=== PATIENT | female | born 1945 | race Caucasian/White ===

== ENCOUNTER 2016-06-28 18:44 | Emergency (ER) | payer MEDICARE ==
[~2016-06-28 18:44] MED LIST: ADVIL200 M3 PO; ALEVE220 M4 PO; B122500 MCG; CARDIZEM CD120 MG PO; CELEBREX200 M1 PO; CHOLESTYRAMIN4 G/PKT PO; CIPROFLOXACIN250 MG PO; DEPAKOTE D500 MG/TA1 PO; DEPAKOTE ER500 MG; DEPAKOTE500 M1 PO; DEPAKOTE500 MG PO; DULCOLAX10 MG RC; GABAPENTIN300 M1 PO; IRON PO; KRILL OIL PO; LORCET HD CAPSU1 CAP PO; MELATONIN 3 MG1 EAC1 PO; MELATONIN PO; MELATONIN3 M4 PO; MULTIVITAMIN W/1 TA; NITROFURANTOIN100 MG PO; NORCO 5-325 TA1 EACH PO; OMEPRAZOLE20 M3 PO; PRADAXA150 M1 PO; PRADAXA150 MG PO; PROBIOTIC1 EA10 PO; PROBIOTIC1 EACH PO; SORINE80 MG PO; SOTALOL80 M1 PO; TOVIAZ4 MG PO; TYLENOL; TYLENOL EXTRA500 M1 PO; ULTRAM50 M1 PO; VASOTEC PO; VESICARE10 M1 PO; VITAMIN B12-FO1 EAC1 PO; VITAMIN B12500 MCG PO; VITAMIN D PO; VITAMIN E PO; WELLBUTRIN SR150 M1 PO; WELLBUTRIN SR150 MG; WELLBUTRIN XL150 M1 PO; ZOLOFT100 M1 PO; ZOLOFT100 MG; ZOLOFT100 MG PO
[2016-06-28 19:41] LABS: BASO % 0.4 % (0-2); EOSINOPHIL ABSOLUTE COUNT 0.1 tho/cmm (0.0-0.7); HCT-HEMATOCRIT 36.6 % (34.0-49.0); HGB-HEMOGLOBIN 11.9 gm/dl (12.0-15.5); IMMATURE GRANULOCYTES ABSOLUTE 0.03 tho/cmm (0-0.03); IMMATURE GRANULOCYTES PERCENT 0.6 % (0-0.3); LYMPH % 31.8 % (20-45); LYMPH ABSOLUTE COUNT 1.6 tho/cmm (0.8-4.5); MCH (MEAN CORPUSCULAR HGB) 30.9 pg (28.0-32.0); MCHC MEAN CORPUSCULAR HGB CONC 32.5 % (32.0-36.0); MCV (MEAN CELL VOLUME) 95.1 fl (82.0-96.0); MEAN PLATELET VOLUME 10.4 cmc (9.4-12.4); MONO % 8.6 % (0-12); MONOCYTE ABSOLUTE COUNT 0.4 tho/cmm (0.0-1.2); NEUTROPHIL ABSOLUTE COUNT 2.8 tho/cmm (1.6-8.0); NEUTROPHIL-AUTOMATED 2.8 tho/cmm (1.6-8.0); NEUTROPHILS % 56.6 % (40-80); PLATELET COUNT 185 tho/cmm (150-450); RED BLOOD COUNT 3.85 mil/cmm (4.00-5.20); RED CELL DISTRIBUTION WIDTH 13.4 % (12.4-16.4); WHITE BLOOD COUNT 4.9 tho/cmm (4.0-10.0)
[2016-06-28 19:56] LABS: ANION GAP 12 mmol/L (0-20); BLOOD UREA NITROGEN 17 mg/dl (6-24); CALCIUM 8.1 mg/dl (8.5-10.5); CARBON DIOXIDE-VENOUS 26 mmol/L (22-32); CHLORIDE 110 mmol/l (96-110); CREATININE 0.79 mg/dl (0.50-1.10); GLUCOSE 102 mg/dL (70-110); POTASSIUM 3.8 mmol/L (3.7-5.1); SODIUM 144 mmol/L (135-145); eGFR VALUE FOR BLACK 89 mL/Min
[2016-10-29] MEDS ORDERED: NEURONTIN300 M1 PO (01:38)
[2016-10-29] MEDS ORDERED: VRAYLAR3 MG PO (01:39)
[2016-11-01] MEDS ORDERED: METOPROLOL TART25 M1 PO (14:20)
[2016-11-01] MEDS ORDERED: BACTRIM DS TAB1 EAC2 PO (14:21)
== END 2016-06-28 21:41 ==
LOC: EDMED 18:44
PROVIDERS: Emergency Medicine
DX: R07.89 Other chest pain (principal); I10 Essential (primary) hypertension; I48.91 Unspecified atrial fibrillation